=== PATIENT | male | born 1950 | race Caucasian/White ===

== ENCOUNTER → 2016-10-27 | Outpatient (CLI) | payer OTHER ==
--- NOTE | 2016-10-27 17:48 | MR ---
MRI of the Lumbar Spine (Without Contrast) Clinical Indications: Low back pain and right SI joint pain. Right lower extremity radiculopathy. Technique: Sagittal and axial T1 and T2 MR sequences of the lumbar spine, without contrast. Findings: Lumbar alignment is normal. Marrow signal intensity is benign in features. Degenerative changes are present as follows: L1-L2: No disk herniation or stenosis. L2-L3: Disk desiccation and mild annular bulging diffusely, without discrete disk prolapse or neural impingement. L3-L4: Disk desiccation and moderate intervertebral disk height loss, with diskogenic bone marrow ed jeremy involving the inferior endplate of L3 and the superior endplate of L4. Broad-based annular bulgi ng contributes to moderate acquired central canal stenosis. There is also moderate bilateral facet d egenerative hypertrophy, with associated moderate left and mild right neural foraminal stenosis. L4-L5: Disk desiccation and diffuse annular bulging, contributing to mild acquired central canal heriberto nosis. The neural foramina are moderately stenotic bilaterally secondary to annular bulging and face t degenerative hypertrophy. There is a moderate size far lateral right disk protrusion at this level , best visualized on axial images #32 of series #5 and #32 of series #6, with mass effect on the exit ing right L4 nerve root and also the crossing right L3 nerve. L5-S1: Disk desiccation and mild diffuse annular bulging. No dominant disk herniation. The neural foramina are moderately stenotic bilaterally secondary to annular bulging. There is also severe righ t and moderate left facet degenerative hypertrophy, the right facet degenerative changes contributing to relatively pronounced right foraminal encroachment. Impression: 1. Multilevel lumbar degenerative disk disease and facet degenerative joint disease, as detailed by level above. With reference to right lower extremity symptoms, the right neural foramen is markedly stenotic at L5-S1 secondary to annular bulging and facet degenerative hypertrophy. There is also rig ht-sided neural foraminal stenosis and far lateral disk protrusion at L4-L5.. 2. Other level findings, as above.
== END ==
LOC: FIMAGING 13:33
PROVIDERS: ATTEND Internal Medicine
DX: M51.16 Intervertebral disc disorders with radiculopathy, lumbar region (principal); M47.26 Other spondylosis with radiculopathy, lumbar region

== ENCOUNTER → 2017-04-18 | Outpatient (CLI) | payer OTHER | LOC: FIMAGING 11:01 | PROVIDERS: ATTEND Internal Medicine | DX: R05 Cough (principal); I51.7 Cardiomegaly | CPT/HCPCS: 86334-90; G0472 ==

== ENCOUNTER → 2017-05-24 | Outpatient (CLI) | payer OTHER | LOC: CIMAGING 14:17 | PROVIDERS: ATTEND Specialist | DX: H66.91 Otitis media, unspecified, right ear (principal); H90.71 Mixed conductive and sensorineural hearing loss, unilateral, right ear, with unrestricted hearing on the contralateral side; H90.42 Sensorineural hearing loss, unilateral, left ear, with unrestricted hearing on the contralateral side; J34.1 Cyst and mucocele of nose and nasal sinus | CPT/HCPCS: 70480-PO ==

== ENCOUNTER 2017-06-20 16:52 | Emergency (ER) | payer OTHER ==
--- NOTE | 2017-06-20 17:45 | EDPHY ---
H & P Smoking Status: Never smoked Time Seen by Provider: 06/20/17 17:26 HPI/ROS: CHIEF COMPLAINT: Left wrist swelling and redness HISTORY OF PRESENT ILLNESS: 66-year-old male with multiple myeloma presents with left wrist swelling and redness. Onset of left wrist pain yesterday the pain is moderate to severe and constant. Associated with gradually increasing swelling and redness today. Ibuprofen 600 mg orally taken prior to arrival. No fever or injury. No prior history of gout. REVIEW OF SYSTEMS: Constitutional: No fever, no chills Eyes: No visual changes ENT: No sore throat Respiratory: No cough, no shortness of breath Cardiac: No chest pain Gastrointestinal: No nausea, no vomiting, no abdominal pain Genitourinary: no dysuria Skin: No rash Neurological: No headache Psychiatric: No depression (Melina Meyers) Past Medical/Surgical History: Multiple myeloma DVT, on Coumadin (Melina Meyers) Social History: Retired ER doc (Melina Meyers) Physical Exam: General Appearance: Alert, pleasant Eyes: Pupils equal and round, no conjunctival pallor or injection ENT, Mouth: normal inspection, Mucous membranes moist Neck: Normal inspection Respiratory: normal respiratory rate CV: regular rate and rhythm Neurological: A&O, nonfocal, normal gait Skin: Warm and dry Extremities: left wrist-erythema and tenderness over the dorsal aspect of the left wrist and hand, left wrist range of motion with mild pain, but able; digit extension and flexion without pain Vascular: 2+ radial pulse Psychiatric: Mood and affect normal (Melina Meyers) Constitutional: Initial Vital Signs Temperature (C) 37.1 C 06/20/17 17:11 Heart Rate 52 L 06/20/17 17:11 Respiratory Rate 16 06/20/17 17:11 Blood Pressure 120/84 H 06/20/17 17:11 O2 Sat (%) 98 06/20/17 17:11 O2 Delivery Mode Room Air Allergies/Adverse Reactions: SHRIMP Allergy (Uncoded 02/10/14 09:33) Home Medications: Medication Instructions Recorded Albuterol [Proventil Inhaler HFA 2 puffs IH Q6 PRN 02/10/14 (*)] Beclomethasone Qvar 40 [Qvar 40 2 puffs IH BID 02/10/14 (*)] Fluticasone Nasal [Flonase Nasal 2 sprays [place] DAILY 02/10/14 [place]] Ipratropium [Atrovent Hfa (*)] 2 puffs IH Q6 PRN 02/10/14 Warfarin Sodium [Coumadin 7.5MG 7.5 mg PO DAILY16 #60 tab 02/13/14 (RX)] Acyclovir 06/20/17 Decadron 2 MG (*) 06/20/17 Elotuzumab 06/20/17 Metformin HCl 06/20/17 Revlimid 06/20/17 Sulfamethox/Tmp 800/160 mg 1 tab PO BID@1000,2200 #14 tab 06/20/17 [Bactrim Ds] Medical Decision Making ED Course/Re-evaluation: 2150: I spoke with this patient about his synovial fluid results but unfortunately it was a small amount unable to run WBC count and red blood cell count. G stain does show no organisms. There are whites present. I updated Orthopedics Dr. VALENCIA. He actually is going to come and see and evaluate the patient again and talk to him about follow-up care. He did recommend give IV vancomycin which I have ordered 1 g additionally the orthopedic doctor will follow-up the crystals as they cannot run that tonight OB run in the morning and review by our pathologist. Additionally follow-up culture. IV vancomycin will be given here in the emergency room. Additionally Dr. Pastrana requested that I speak with [facility] I about possible broader coverage Vanco and another agent I will touch base with them to see if they have any feeling about this. He is comfortable going home on Bactrim as well. Spoke with Dr. Wolf, Has been consulted at [facility]. Discussed case. Thinks the idea of it being a Gram Negative bug is unlikely. Okay with IV vanco and PO Bactim DS. Discussed a detailed this patient about antibiotic coverage IV vancomycin Bactrim for home. He is comfortable this plan. [facility] comfortable this plan orthopedics will follow up his further studies. He would like to go home. Velcro wrist splint for comfort. (Cayetano Haider) 66-year-old male with multiple myeloma on Coumadin presents with left wrist swelling and pain. Concerning for septic arthritis versus gout. Given the overlying erythema on the dorsum of the wrist, I do not feel comfortable performing arthrocentesis of the left wrist. Dr. Valencia (Hand surgery) was consulted and will see the pt in the ED. Pt seen by Dr. Valencia and arthroscentesis performed. Results pending. Dr. Haider will assume care at shift change. (Melina Meyers) Differential Diagnosis: Differential diagnosis includes though it is not limited to gout, septic arthritis, fracture, dislocation, tendon disruption, neurovascular compromise. ( Melina Meyers) - Data Points Laboratory Results: Laboratory Results 06/20/17 17:50 06/20/17 17:50 Microbiology Results: MICROBIOLOGY 06/20/17 16:40 Wrist - Aspirate Gram Stain - Final Medications Given: Discontinued Medications Vancomycin/Sodium Chloride (Vancomycin 1 Gm (Premix)) 250 mls @ 250 mls/hr IV EDNOW ONE PRN Reason: Protocol Stop: 06/20/17 22:43 Last Admin: 06/20/17 21:55 Dose: 250 mls Departure - Departure Disposition: Home, Routine, Self-Care Clinical Impression: Wrist pain, acute Qualifiers: Laterality: left Qualified Code(s): M25.532 - Pain in left wrist Condition: Good Instructions: Arthralgia (ED) Additional Instructions: 1. Return to the emergency room if you have worsening symptoms questions or concerns. 2. Antibiotics as prescribed. 3. Follow up Orthopedics. Referrals: Gage Vidal MD [Primary Care Provider] - As per Instructions Carloz Valencia MD [Medical Doctor] - As per Instructions Prescriptions: Sulfamethox/Tmp 800/160 mg [Bactrim Ds] 1 tab PO BID@1000,2200 #14 tab
[2017-06-20 18:05] LABS: % IMMATURE GRANULYOCYTES 0.7 % (0.0-1.1); ABSOLUTE IMMATURE GRANULOCYTES 0.04 10^3/uL (0.00-0.10); ADD DIFF? NO; ADD MORPH? NO; ADD SCAN? NO; ATYPICAL LYMPHOCYTE FLAG 40 (0-99); FRAGMENT RBC FLAG 0 (0-99); HEMATOCRIT 39.5 % (40.0-51.0); HEMOGLOBIN 13.5 g/dL (13.7-17.5); LEFT SHIFT FLG 10 (0-99); LIPEMIA HEMOLYSIS FLAG 90 (0-99); MEAN CELL HEMOGLOBIN 31.6 pg (27.9-34.1); MEAN CELL HEMOGLOBIN CONCENTR. 34.2 g/dL (32.4-36.7); MEAN CELL VOLUME 92.5 fL (81.5-99.8); MEAN PLATELET VOLUME 10.1 fL (8.7-11.7); PLATELET CLUMPS FLAG 0 (0-99); PLATELET COUNT 205 10^3/uL (150-400); RED BLOOD CELL COUNT 4.27 10^6/uL (4.40-6.38); RED CELL DISTRIBUTION WIDTH 14.6 % (11.5-15.2)
[2017-06-20 18:13] LABS: INR 2.82 (0.83-1.16)
[2017-06-20 18:24] LABS: ANION GAP 9 mEq/L (8-16); CALCIUM 8.4 mg/dL (8.5-10.4); CARBON DIOXIDE 23 mEq/l (22-31); CHLORIDE 104 mEq/L (97-110); CREATININE 0.9 mg/dL (0.7-1.3); GLOMERULAR FILTRATION RATE > 60; GLUCOSE 78 mg/dL (70-100); POTASSIUM 3.8 mEq/L (3.5-5.2); SODIUM 136 mEq/L (134-144); URIC ACID 4.2 mg/dL (3.5-8.5)
[2017-06-20 20:45] LABS: CRYSTALS, SYNOVIAL FLUID NONE SEEN (NONE SEEN)
[2017-06-20] MEDS ORDERED: VANCOMYCIN HCL/NORMAL SALINE 250 ML IV ONE (21:44)
[2017-06-20 21:56] VITALS: BP 127/82; PULSE 50; RESP 16; O2SAT 96
[2017-06-20 21:59] VITALS: TEMP 98.1
--- NOTE | 2017-06-21 13:29 | GCON ---
[f rep st] CONSULTATION CONSULTATION IN THE EMERGENCY DEPARTMENT DATE OF CONSULTATION: 06/20/2017 REFERRING PHYSICIAN: Melina Meyers MD CHIEF COMPLAINT: Left wrist swelling and pain. 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 The patient states that he was recently in [place] doing some photography and on the way back, noticed increasing pain and swelling of his wrist. He took several . __ The patient localizes pain to the dorsal wrist. Pain is aggravated by wrist motion, particularly with extremes of flexion . He has had prior episodes of wrist swelling after heavy activity, but not with erythema. He denies a history of gout. He denies any penetrating injury in the last few days. OBJECTIVE: VITAL SIGNS: Within normal limits. Afebrile. LABORATORY DATA: Patient's white count is within normal limits . PHYSICAL EXAMINATION: GENERAL: He is lying in bed in no acute distress. ____ LEFT WRIST: There is swelling and erythema over the dorsal left wrist. metacarpal base dorsal . There is tenderness to palpation volarly over the wrist. There is no tenderness to palpation . There is mild tenderness to palpation over the snuffbox. Range of motion: He has minimal pain to passive range of motion in the mid arc of motion. He had dorsally. He had some pain 40 degrees of well perfused . Differential diagnosis includes cellulitis versus . immunocompromised state makes him more susceptible to infection. However, the recent introduction of chemotherapy also makes him susceptible to gout. I discussed with him the risks and benefits of aspiration of the wrist joint including putting needle through possibly cellulitic skin proceed with aspiration of the wrist joint of cloudy fluid Gram stain crystals until tomorrow. Gram stain was and no organisms. In light of a negative Gram stain, I had a thorough discussion with the patient. the result of the crystals tomorrow. port site which was chosen more radial away from the cellulitic area. infiltrated with . . __ . /[id number]/[id number] and [id number], 06/21/17 00:01 REJI
--- NOTE | 2017-06-21 18:21 | PDCONSULT ---
Brokerage Branch Manager Note: This is an addendum to the dictated consultation note from 06/20. There were multiple blanks and poorly dictated areas that did not transcribe well. Consultation CC: L wrist pain HPI: 66 yo M presents with L wrist pain, swelling x 24 hr. States that he was in [place] doing some photography and afterward wrist began to swell. Took several motrin and pain improved. The pain returned earlier today and the patient noticed erythema beginning about 4 hr prior to presentation. C/o pain with wrist motion. He was recently diagnosed with multiple myeloma and began chemo one month ago. Denies prior episodes of gout. Vitals: see chart labs: significant for WBC 5.84, HGB 13.5, INR, 2.82, Urate 4.2 PMH: multiple myeloma ShX: does not smoke PE: Gen: NAD, resting comfortably CV: 2+ radial p Pulm: chest rise equal and unlabored B/L L wrist -diffuse swelling and mild erythema dorsal L wrist -45/45 flex/ext, pain at extremes -no pain at mid arc PROM -ttp dorsal wrist -digits well perfused -sensation intact all digits A/P Differential includes gout vs septic wrist vs cellulitis -in light of recent chemo, he is at risk for gout, however immunocompromised status puts him at risk for septic arthritis as well -discussed risks and benefits of aspiration through cellulitic skin, including secondary infection, will proceed with aspiration -Aspiration yielded 4+ PMN and 4+ mono, no organisms on gram stain. The cell count was cancelled by the lab. The synovial fluid count was not available until the next day and no crystals were seen. -Though no organisms seen at this time, we decided to give dose of IV Vanco and d/c pt on PO Bactrim to cover empirically while waiting for finals cultures, the pt will be contacted by me with culture results - Working diagnosis is gout, however will await final cx Procedure note, wrist aspiration: Verbal consent obtained. Lidocaine infiltrated for anesthesia. Wrist prepped and draped in sterile fashion. Needle guided away from cellulitic skin and 3cc cloudy fluid aspirated. Pt tolerated procedure well. Bleeding controlld with pressure.
== END 2017-06-20 23:06 | disposition home or self-care (01) ==
PROC: 0M9 Bursae and Ligaments, Drainage (ICD-10-PCS; principal; 2017-06-20)
DX: M25.532 Pain in left wrist (principal)
CPT/HCPCS: 20605; 73110; 96365; 99284; J3370; L3908

== ENCOUNTER → 2018-03-02 | Outpatient (CLI) | payer OTHER | LOC: FLAB 12:29 | PROVIDERS: ATTEND Physician Assistant | DX: J44.9 Chronic obstructive pulmonary disease, unspecified (principal) ==